=== PATIENT | female | born 1975 | race American Indian/Alaskan Native ===

== ENCOUNTER 2020-07-03 13:03 | Emergency (ER) | payer OTHER ==
--- NOTE | 2020-07-03 16:54 | Emergency Department Report ---
ED General Adult HPI - General Chief complaint: Eye Problems Stated complaint: GARCÍA EYE INFECTED AND SWOLLEN Time Seen by Provider: 07/03/20 16:40 Source: patient Mode of arrival: Ambulatory Limitations: No Limitations - History of Present Illness Initial comments: 45-year-old -[place] female patient presents with complaints of bilateral eye infection x1 week. She states she was seen by her doctor at [facility] 1 week ago and given Polytrim drops. She states her symptoms did not improve and she went back to her eye doctor 3 days later and was prescribed erythromycin ointment twice daily. Patient states her symptoms are still not improving. She also tried Benadryl twice a day for 3 days without any improvement. She denies any new make-up products or medications, vision changes, or headache. Patient reports pus drainage from both eyes and crusting of the eyes shut in the morning upon waking. She states she was recently pre scribed contact lenses. No trauma to the eyes per patient. She does state there is itching and mild throbbing pain. No pain with eye movements per patient. - Related Data Previous Rx's Medication Instructions Recorded Last Taken Type Doxycycline Hyclate 100 mg PO BID 7 Days #14 tablet. 07/03/20 Unknown Rx Ofloxacin 0.3% [Ocuflox 0.3% opth] 1 drops OP Q2H 7 Days #1 bottle 07/03/20 Unknown Rx predniSONE [Deltasone] 20 mg PO BID 3 Days #6 tab 07/03/20 Unknown Rx Allergies Allergy/AdvReac Type Severity Reaction Status Date / Time No Known Allergies Allergy Verified 07/03/20 14:20 ED Review of Systems ROS: Stated complaint: GARCÍA EYE INFECTED AND SWOLLEN Other details as noted in HPI Constitutional: denies: chills, fever, malaise Eyes: eye pain, eye discharge. denies: vision change ENT: denies: ear pain, throat pain Respiratory: denies: cough, shortness of breath Musculoskeletal: denies: joint swelling, arthralgia Hematological/Lymphatic: denies: swollen glands ED Past Medical Hx - Past Medical History Previous Medical History?: No - Surgical History Past Surgical History?: No - Social History Smoking Status: Never Smoker Substance Use Type: None - Medications Home Medications: Home Medications Medication Instructions Recorded Confirmed Last Taken Type Doxycycline Hyclate 100 mg PO BID 7 Days #14 tablet. 07/03/20 Unknown Rx Ofloxacin 0.3% [Ocuflox 0.3% opth] 1 drops OP Q2H 7 Days #1 bottle 07/03/20 Unknown Rx predniSONE [Deltasone] 20 mg PO BID 3 Days #6 tab 07/03/20 Unknown Rx ED Physical Exam - General Limitations: No Limitations General appearance: alert, in no apparent distress - Head Head exam: Present: atraumatic - Eye Eye exam: Present: PERRL, EOMI, conjunctival injection (Bilateral; mild swelling of the upper and lower eyelids noted; scant amount of purulent drainage noted to the eyes bilaterally). Absent: scleral icterus, periorbital tenderness - Respiratory Respiratory exam: Absent: respiratory distress - Cardiovascular Cardiovascular Exam: Present: regular rate - Neurological Exam Neurological exam: Present: alert, oriented X3 - Psychiatric Psychiatric exam: Present: normal affect, normal mood - Skin Skin exam: Present: warm, dry, intact, normal color. Absent: rash ED Course Vital Signs 07/03/20 07/03/20 14:16 16:58 Temperature 98.0 F Pulse Rate 75 Respiratory 18 Rate Blood Pressure 169/114 167/101 O2 Sat by Pulse 99 Oximetry ED Medical Decision Making - Medical Decision Making 45-year-old -[place] female patient presents with complaints of bilateral eye infection x1 week. She states she was seen by her doctor at [facility] 1 week ago and given Polytrim drops. She states her symptoms did not improve and she went back to her eye doctor 3 days later and was prescribed erythromycin ointment twice daily. Patient states her symptoms are still not improving. She also tried Benadryl twice a day for 3 days without any improvement. She denies any new make-up products or medications, vision changes, or headache. Patient reports pus drainage from both eyes and crusting of the eyes shut in the morning upon waking. She states she was recently prescribed contact lenses. No trauma to the eyes per patient. She does state there is itching and mild throbbing pain. No pain with eye movements per patient. Given contact lens use, will treat with ofloxacin to cover for Pseudomonas. Patient also given oral doxycycline given failure with use of topical antibiotics. Recommend follow-up with ophthalmology in 2 days, referral given. She is well-appearing, her vitals are stable, she is stable for discharge home. Patient also informed to follow-up with her primary care doctor in 2 days for blood pressure recheck given that she does not have history of hypertension. Critical care attestation.: If time is entered above; I have spent that time in minutes in the direct care of this critically ill patient, excluding procedure time. ED Disposition Clinical Impression: Bacterial conjunctivitis of both eyes, Elevated blood pressure reading Disposition: TO HOME OR SELFCARE Is pt being admited?: No Condition: Stable Instructions: Bacterial Conjunctivitis, Adult, Hypertension, Adult Prescriptions: predniSONE [Deltasone] 20 mg PO BID 3 Days #6 tab Doxycycline Hyclate 100 mg PO BID 7 Days #14 tablet. Ofloxacin 0.3% [Ocuflox 0.3% opth] 1 drops OP Q2H 7 Days #1 bottle Referrals: EVAN KUO MD [Staff Physician] - 2-3 Days Forms: Work/School Release Form(ED)
[2020-07-03 18:38] VITALS: BP 167/101
== END 2020-07-03 17:48 | disposition home or self-care (01) ==
LOC: ED 13:03
DX: H10.9 Unspecified conjunctivitis (principal); R03.0 Elevated blood-pressure reading, without diagnosis of hypertension; Z79.899 Other long term (current) drug therapy
CPT/HCPCS: 99281